=== PATIENT | female | born 1950 | race Caucasian/White ===

== ENCOUNTER 2017-04-24 17:11 | Emergency (ER) | payer MEDICARE ==
[2017-04-24 17:29] VITALS: BP 132/87
[2017-04-24] MEDS ORDERED: Dexamethasone IV* 4 MG/ML 1 ML (4 MG) IM ONE (19:56)
[2017-04-24] MEDS ORDERED: hydrOXYzine HCL TAB* 50 MG PO ONE ×2 (19:58→21:08)
[2017-04-24] MEDS ORDERED: Triamcinolone 0.5% OINT * 15 GM TUBE TOPICAL SCH (21:00)
[2017-04-24] MEDS ORDERED: Triamcinolone 0.5% CREAM(NF) 15 GM TUBE TOPICAL SCH (21:00)
[2017-04-24] MEDS ORDERED: HYDROCORTISONE 0.5% TOPICAL SCH (21:00)
--- NOTE | 2017-04-24 21:48 | ED ---
Allergic Reaction/Systemic - HPI Summary HPI Summary: Patient presents to ED with CC of redness and itching to the chin and right upper cheek inferior to the eye since 6:30am. She denies known allergies. She denies detergent, soap and lotion changes. She denies food allergies. She had an allergic reaction several years ago and was given prednisone which helped her symptoms. She is unaware of anything that has changed, anything she may have touched or medication changes. Redness and itching has been worsening since this morning and she took 50mg Benadryl without relief approximately 3 hours ago. She denies difficulty swallowing, difficulty breathing, SOB or feeling of throat tightness. She denies chest pain, numbness or tingling in extremities. She is a smoker, but is otherwise healthy. - History of Current Complaint Chief Complaint: EDAllergicReaction Time Seen by Provider: 04/24/17 18:49 Hx Obtained From: Patient Onset/Duration: Sudden Onset Timing: Constant Severity Initially: Moderate Severity Currently: Moderate Pain Intensity: 0 Pain Scale Used: 0-10 Numeric Location: Discrete @ - chin and right upper cheek Character: Pruritus Aggravating Factor(s): Nothing Alleviating Factor(s): Cold Associated Signs And Symptoms: Positive: Rash - Related Hx Possible Reaction To: Unknown - Allergies/Home Medications Allergies/Adverse Reactions: Allergies Allergy/AdvReac Type Severity Reaction Status Date / Time No Known Allergies Allergy Verified 04/24/17 17:25 PMH/Surg Hx/FS Hx/Imm Hx Previously Healthy: Yes Endocrine/Hematology History: Denies: Hx Diabetes Cardiovascular History: Denies: Hx Hypertension, Hx Pacemaker/ICD History: Denies: Hx Renal Disease Sensory History: Denies: Hx Hearing Aid Psychiatric History: Denies: Hx Panic Disorder - Surgical History Surgery Procedure, Year, and Place: 1995- SHOULDER -ARTHROSCOPIC. BASAL CELL REMOVED FROM Lt SHOULDER AND BY Lt EYE. WISDON TEETH EXTRACTED Hx Anesthesia Reactions: No - Immunization History Hx Pertussis Vaccination: No Immunizations Up to Date: No Infectious Disease History: No Infectious Disease History: Denies: Traveled Outside the [place] in Last 30 Days - Social History Occupation: Employed Full-time Lives: With Family Alcohol Use: None Hx Substance Use: No Substance Use Type: Reports: None Hx Tobacco Use: Yes Smoking Status (MU): Current Every Day Smoker Review of Systems Constitutional: Negative Eyes: Negative ENT: Negative Cardiovascular: Negative Gastrointestinal: Negative Genitourinary: Negative Positive: no symptoms reported, see HPI Musculoskeletal: Negative Positive: Rash Neurological: Negative Psychological: Normal All Other Systems Reviewed And Are Negative: Yes Physical Exam Triage Information Reviewed: Yes Vital Signs On Initial Exam: Initial Vitals Temp Pulse Resp BP Pulse Ox 98.4 F 81 16 132/87 97 04/24/17 17:25 04/24/17 17:25 04/24/17 17:25 04/24/17 17:25 04/24/17 17:25 Vital Signs Reviewed: Yes Appearance: Positive: Well-Appearing, Well-Nourished Skin: Positive: Skin Color Reflects Adequate Perfusion, Dry, Other - redness with small papules under chin and inferior to the right eye upper cheek Head/Face: Positive: Normal Head/Face Inspection Eyes: Positive: EOMI, DEN, Conjunctiva Clear Neck: Positive: Supple, No Lymphadenopathy Respiratory/Lung Sounds: Positive: Clear to Auscultation, Breath Sounds Present Cardiovascular: Positive: Normal, RRR, Pulses are Symmetrical in both Upper and Lower Extremities Musculoskeletal: Positive: Normal, Strength/ROM Intact Neurological: Positive: Sensory/Motor Intact, Speech Normal Psychiatric: Positive: Normal AVPU Assessment: Alert Diagnostics - Vital Signs Vital Signs Temp Pulse Resp BP Pulse Ox 04/24/17 17:25 98.4 F 81 16 132/87 97 - Laboratory Lab Statement: Any lab studies that have been ordered have been reviewed, and results considered in the medical decision making process. Allergic Reaction Course/Dx - Course Course Of Treatment: Patient here with possible allergic reaction to unknown source. Denies difficulty breathing, throat tightness or difficulty seeing. She is a smoker but is otherwise healthy. She has no known allergies and denies medications, detergents or soap changes. Denies contact with plants or other potential allergic reactors. Benadryl 50mg without relief. Patient feels better with cold compresses to the area. Warm on palpation. 4mg decadron IM given in ED, Hydroxyzine 50mg, hydrocortisone 2.5% given in ED. Patient still admits to some itchiness, but symptoms have improved. DC'd home with prednisone taper, cream and hydroxyzine. Return precautions given. - Diagnoses Differential Diagnosis/HQI/PQRI: Positive: Airway Obstruction, Anaphylaxis, Local Allergic Reaction Provider Diagnoses: Allergic reaction Discharge - Discharge Plan Condition: Stable Disposition: HOME Prescriptions: hydrOXYzine HCL TAB* [Atarax TAB 50 MG *] 50 mg PO QID PRN #20 tab MDD 4 PRN Reason: Itching predniSONE TAB* [Deltasone TAB*] 10 mg PO DAILY #15 tab Patient Education Materials: Urticaria (ED), Allergies (ED), Cold Compress or Soak (ED) Referrals: Juanita Pino MD [Primary Care Provider] - Additional Instructions: Follow up with your PCP. If symptoms become worse, you develop itching in the throat, difficulty breathing or difficulty swallowing, come back to ED immediately. You may take 50mg Benadryl at bedtime. Follow all prescriptions as directed.
== END 2017-04-24 21:24 | disposition home or self-care (01) ==
LOC: ED 17:11
DX: L23.9 Allergic contact dermatitis, unspecified cause (principal)
CPT/HCPCS: 96372; 99282; A9270-GY; J1100

== ENCOUNTER 2017-05-02 07:02 | Emergency (ER) | payer MEDICARE ==
[2017-05-02 07:14] VITALS: BP 147/85
--- NOTE | 2017-05-02 07:31 | UC ---
cruz Amin Timothy, scribed for Jazmyne Geronimo MD on 05/02/17 at 0717 . Skin Complaint HPI - HPI Summary HPI Summary: Sophia Mcdaniel is a 67 yo female presenting to [facility] with a pruritic rash on her left ear face bilateral cheeks since 04/24/17 causing her 8/10 burning, itching pain. She was seen in the ED and started on prednisone x 5 days which relieved her Sx, however she is off prednisone currently and her Sx have returned as of 04/30/17. yesterday pt developed patchy, red, mildly raised rash left mid abdomen to posterior flank. She states she occasionally has noticed chills and diarrhea. PT notes she also has been experiencing fatigue. She has been taking Aleve without relief. Pt taken Benadryl with some improvement. Pt states after shower itching was "much worse". She denies fever, nausea, vomiting , SOB. No facial, oral edema. Her PMHx includes chronic back issues, claustrophobia, and tobacco use. Pt medication list reviewed this visit. 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 Negative: Nausea, Vomiting, Difficulty Breathing, Fever - Allergy/Home Medications Allergies/Adverse Reactions: Allergies Allergy/AdvReac Type Severity Reaction Status Date / Time No Known Allergies Allergy Verified 04/24/17 17:25 Review of Systems Constitutional: Chills, Fatigue Skin: Rash Eyes: Negative ENT: Negative Respiratory: Negative Cardiovascular: Negative Gastrointestinal: Diarrhea Genitourinary: Negative Motor: Negative Neurovascular: Negative Musculoskeletal: Negative Neurological: Negative Psychological: Negative All Other Systems Reviewed And Are Negative: Yes PMH/Surg Hx/FS Hx/Imm Hx Previously Healthy: Yes - Surgical History Surgical History: Yes Surgery Procedure, Year, and Place: 1995- Lt SHOULDER -ARTHROSCOPIC. BASAL CELL REMOVED FROM Lt SHOULDER AND BY Lt EYE. WISDON TEETH EXTRACTED - Family History Known Family History: Negative: Cardiac Disease, Hypertension, Diabetes - Social History Occupation: Retired Lives: With Family Alcohol Use: None Substance Use Type: None Smoking Status (MU): Current Every Day Smoker Physical Exam Triage Information Reviewed: Yes Appearance: Well-Appearing, No Pain Distress, Well-Nourished Vital Signs: Initial Vital Signs Temp 97.9 F 05/02/17 07:10 Pulse 77 05/02/17 07:10 Resp 16 05/02/17 07:10 BP 147/85 05/02/17 07:10 Pulse Ox 100 05/02/17 07:10 Vital Signs Reviewed: Yes Eye Exam: Normal Eyes: Positive: Conjunctiva Clear ENT Exam: Normal ENT: Positive: Hearing grossly normal, Pharynx normal, Nasal drainage, TMs normal Neck exam: Normal Neck: Positive: Supple, Nontender, No Lymphadenopathy Respiratory Exam: Normal Respiratory: Positive: Chest non-tender, Lungs clear, Normal breath sounds. Negative: Wheezing Cardiovascular Exam: Normal Cardiovascular: Positive: RRR, No Murmur, Pulses Normal Abdominal Exam: Normal Abdomen Description: Positive: Nontender, No Organomegaly, Soft Bowel Sounds: Positive: Present Musculoskeletal Exam: Normal Neurological Exam: Normal Psychological Exam: Normal Skin: Positive: Other - Pt with patchy, raised, red areas, macular in appearance on right cheek, left ear, and band-like patch left lower abd to flank. Dry. No vesicles. Pruritic. No tendernessNo perioribital, lid,, nose lesions Course/Dx - Course Course Of Treatment: Sophia Mcdaniel is a 67 yo female presenting to [facility] with pruritic rash causing 8/10 burning pain on her left ear, left torso,, and bilateral cheeks, originally since 04/24/17, cleared up by a visit to [facility] with prednisone Rx, and returning as of 04/30/17. Pt was counseled as to the types and effects of possible prescribed medications. Pt was counseled as to the course of Tx for shingles versus an allergic reaction, and had her questions answered to her satisfaction. Pt was counseled regarding the course of illness of shingles. Pt was counseled to inform the doctor performing her ablation of her current condition. Pt was counseled to avoid motrin, ibuprofen, advil, or naproxen to avoid histamine release. Pt was questioned regarding her experience with codeine, and states she has not had any problems with drug abuse. Pt was counseled that her blood pressure of 147/85 was slightly high and that she should be rechecked by her PCP. After clinical examination, she will be discharged home with appropriate instructions. - Differential Diagnoses - Skin Complaint Differential Diagnoses: Local Allergic Reaction, Other - shingles - Diagnoses Provider Diagnoses: rash Discharge - Discharge Plan Condition: Stable Disposition: HOME Prescriptions: Acetaminop/Codeine 30 MG TAB* [Tylenol/Codeine 30 MG TAB*] 1 - 2 tab PO Q6H PRN #15 tab MDD 8 PRN Reason: Pain ValACYclovir (*) [Valtrex 1 GM(*)] 1 gm PO DAILY #30 tab predniSONE TAB* [Deltasone TAB*] 20 mg PO DAILY #20 tab Patient Education Materials: Valacyclovir (By mouth), Shingles (ED), General Allergic Reaction (ED), Cold Compress or Soak (ED) Referrals: Juanita Pino MD [Primary Care Provider] - 2 Days [facility]ERR[facility] [Outside] - If Needed Additional Instructions: - Take Prednisone and Valtrex exactly as prescribed. Take with food - Avoid getting overheated - hot showers, hot tubs, exercise for 3-4 days - Apply cool cloth to areas that are itchy -Avoid NSAIDS (motrin, Naproxyn, Advil, aleve) for 2-3 days - Okay to take tylenol product (Tylenol or Tylenol with codeine) for pain. do NOT drive, operate machinery or drink alcohol while taking codeine. Do NOT drive , operate machinery or drink alcohol while taking Codeine - Okay to take Bendaryl every 6-8 hours as needed for itching. Do NOT drive while taking this medication as it may cause drowsiness - Contact your doctor, return here or go to the emergency department with questions or concerns The documentation as recorded by the cruz hoffman Timothy accurately reflects the service I personally performed and the decisions made by me, Jazmyne Geronimo MD.
== END 2017-05-02 07:56 | disposition home or self-care (01) ==
LOC: UCEAST 07:02
DX: R21 Rash and other nonspecific skin eruption (principal); F17.210 Nicotine dependence, cigarettes, uncomplicated; R03.0 Elevated blood-pressure reading, without diagnosis of hypertension
CPT/HCPCS: 99211; G0463

== ENCOUNTER 2017-06-25 07:59 | Emergency (ER) | payer MEDICARE ==
[2017-06-25 08:05] VITALS: BP 146/79
--- NOTE | 2017-06-25 08:23 | UC ---
Throat Pain/Nasal Que HPI - HPI Summary HPI Summary: 67 y/o female presents to the urgent care c/o sore throat, LF ear pain w/ nasal congestion for the past 4 days. Pt reports mild fever at home, productive cough w/ yellowish phlegm. She has been taking Advil to alleviate symptoms. Ear pain is 4/10. Pt denies SOB, chest pain, N/V/D. Pt states has Hx of sesonal allergies. - History of Current Complaint Chief Complaint: UCRespiratory Stated Complaint: ASTHMA,CHEST CONGEST,SINUS Time Seen by Provider: 06/25/17 08:06 Hx Obtained From: Patient ?: No Onset/Duration: Gradual Onset, Lasting Days Severity: Moderate Pain Intensity: 4 Pain Scale Used: 0-10 Numeric Cough: Productive - yellowish phlegm Associated Signs & Symptoms: Positive: Dysphagia, Sinus Discomfort, Nasal Discharge - yellowish, Fever Related History: Seasonal Allergies - Epiglottits Risk Factors Epiglottis Risk Factors: Negative - Allergies/Home Medications Allergies/Adverse Reactions: Allergies Allergy/AdvReac Type Severity Reaction Status Date / Time No Known Allergies Allergy Verified 04/24/17 17:25 PMH/Surg Hx/FS Hx/Imm Hx Other Neurological History: Spinal stenosis - Surgical History Surgical History: Yes Surgery Procedure, Year, and Place: 1995- Lt SHOULDER -ARTHROSCOPIC. BASAL CELL REMOVED FROM Lt SHOULDER AND BY Lt EYE. WISDON TEETH EXTRACTED - Family History Known Family History: Negative: Cardiac Disease, Hypertension, Diabetes - Social History Occupation: Retired Lives: With Family Alcohol Use: None Alcohol Amount: wine with dinner Substance Use Type: None Smoking Status (MU): Current Every Day Smoker Review of Systems Constitutional: Fever - mild at home Skin: Negative Eyes: Negative ENT: Sore Throat, Ear Ache - LF ear, Nasal Discharge, Sinus Congestion Respiratory: Cough Cardiovascular: Negative Gastrointestinal: Negative Genitourinary: Negative Motor: Negative Neurovascular: Negative Musculoskeletal: Negative Neurological: Negative Psychological: Negative All Other Systems Reviewed And Are Negative: Yes Physical Exam Triage Information Reviewed: Yes Appearance: Well-Appearing, No Pain Distress, Well-Nourished Vital Signs: Initial Vital Signs Temp 98.4 F 06/25/17 08:01 Pulse 94 06/25/17 08:01 Resp 18 06/25/17 08:01 BP 146/79 06/25/17 08:01 Pulse Ox 99 06/25/17 08:01 Vital Signs Reviewed: Yes Eye Exam: Normal Eyes: Positive: Conjunctiva Clear - PERRLA, EOMI, fundi grossly normal ENT: Positive: Normal ENT inspection, Hearing grossly normal, Pharyngeal erythema - no exudate, Nasal congestion - edematous nasal mucosa, Nasal drainage - yellowish, TM red - LF TM erythematous w/o ligh reflex and mild exudate. LF and FT ear canal and RT TM intact., Tonsillar swelling, Other: - LF maxillary sinus tender to palaption. Negative: Tonsillar exudate Dental Exam: Normal Neck exam: Normal Neck: Positive: Supple, Nontender, Enlarged Nodes @ - anterior cervial lymphadenopathy Respiratory Exam: Normal Respiratory: Positive: Chest non-tender, Lungs clear, Normal breath sounds Cardiovascular Exam: Normal Cardiovascular: Positive: RRR, No Murmur, Pulses Normal Abdominal Exam: Normal Abdomen Description: Positive: Nontender, No Organomegaly, Soft. Negative: CVA Tenderness (R), CVA Tenderness (L) Bowel Sounds: Positive: Present Musculoskeletal Exam: Normal Neurological Exam: Normal Psychological Exam: Normal Skin Exam: Normal Throat Pain/Nasal Course/Dx - Course Course Of Treatment: 67 y/o female presents to the urgent care c/o sore throat, LF ear pain w/ nasal congestion for the past 4 days. HX obtained. PE abnormal findings:LF TM erythematous w/o ligh reflex and mild exudate. LF and FT ear canal and RT TM intact. Rapid strep ordered, result negative. Pt W/ LF otitis media and sinusitis. Pt Rx Amoxicillin PO, flonase nasal spray, Loratadine PO to alleviate symptoms. PT BP elevated today, advised to decrease salt in the diet and monitor BP at home if it continue to be elevated to f/u wl PCP for further evaluation and treatment. - Differential Dx/Diagnosis Differential Diagnosis/HQI/PQRI: Laryngitis, Otitis Media, Pharyngitis, Tonsillitis, URI Provider Diagnoses: 1- Left Otitis Media. 2- Elevated Blood pressure w/o HX of HTN Discharge - Discharge Plan Condition: Stable Disposition: HOME Prescriptions: Albuterol HFA INHALER* [Ventolin HFA Inhaler*] 1 puff INH Q6H PRN #1 mdi PRN Reason: Cough Amoxicillin PO (*) [Amoxicillin 875 MG (*)] 875 mg PO BID #20 tab Benzonatate CAP* [Tessalon 100 MG CAP*] 100 mg PO TID PRN #15 cap PRN Reason: Cough Fluticasone NASAL SPRAY 50MCG* [Flonase NASAL SPRAY 50MCG*] 2 spray BOTH NARES DAILY #1 btl Loratadine & Pseudoephedrine [Loratadine/Pseudoephedrin 10-240 mg] 1 tab PO Q24HR #30 tab Patient Education Materials: Sinusitis (ED), Otitis Media (ED), Low Sodium Diet (ED) Referrals: Juanita Pino MD [Primary Care Provider] - If Needed Additional Instructions: Please take full course of antibiotic to avoid resistance. Take other medications as instructed and take Advil q6-8hrs prn after meals to alleviate pain and swelling. If symptoms do not improve or worsen please return to the urgent care or f/u with your PCP for further evaluation and treatment.
== END 2017-06-25 08:36 | disposition home or self-care (01) ==
LOC: UCEAST 07:59
DX: H66.92 Otitis media, unspecified, left ear (principal); R03.0 Elevated blood-pressure reading, without diagnosis of hypertension; J30.2 Other seasonal allergic rhinitis; Z72.0 Tobacco use
CPT/HCPCS: 87651; 99212; G0463